=== PATIENT | female | born 1950 | race Caucasian/White ===

== ENCOUNTER 2018-12-06 12:08 | Emergency (ER) | payer MEDICARE, OTHER, SELFPAY ==
[2018-12-06 12:09] VITALS: BP 154/91; PULSE 81; RESP 16; TEMP 36.7; O2SAT 98; BMI 24.4
--- NOTE | 2018-12-06 12:48 | CT_ITS ---
STUDY: CT BRAIN WITHOUT CONTRAST REASON FOR EXAM: Female, 68 years old. Head injury due to a fall. The patient is on oral anticoagulants. RADIATION DOSAGE (If Supplied By Facility): CTDIvol = ( 44.99 ) mGy, DLP = ( 796.11 ) mGycm TECHNIQUE: Transaxial CT imaging of the brain was performed without administration of intravenous contrast material. Individualized dose optimization techniques were used for this CT. COMPARISON: No relevant priors. FINDINGS: There is evidence of a small scalp hematoma overlying the right frontal bone. Normal calvarium. There is mild cerebral atrophy with widening of the extra-axial spaces and ventricular dilatation. There are areas of decreased attenuation within the white matter tracts of the supratentorial brain, consistent with microvascular disease changes. Normal basal ganglia and thalami. Normal brainstem. Normal cerebellum. There is no intracranial hemorrhage. There are no findings of an acute ischemic infarction. Atherosclerotic calcification of the cavernous portions of the internal carotid arteries bilaterally. Small air-fluid level along the posterior aspect of the right ethmoid sinus. CT/Brain/Head without Contrast IMPRESSION: Chronic involutional changes of the brain. Small scalp hematoma overlying the right frontal bone. Electronically Signed: Carloz Coon, at 14:28 EDT , Service support ,
--- NOTE | 2018-12-06 14:11 | RAD_ITS ---
STUDY: X-RAY - LEFT HAND, ATTENTION LEFT THUMB. REASON FOR EXAM: Female, 68 years old. Pain following injury. TECHNIQUE: view(s) of the finger were obtained. COMPARISON: None. FINDINGS: Normal metacarpal head. Normal metacarpophalangeal joint. Normal proximal phalanx. Normal distal phalanx. Normal distal interphalangeal joint. Osteoarthritis with subluxation of the first carpometacarpal joint. Soft tissue swelling. RAD/Finger(s) Min 2 Views IMPRESSION: Soft tissue swelling. Osteoarthritis and subluxation at the first carpometacarpal joint. Electronically Signed: Carloz Coon, at 14:31 EDT , Service support ,
--- NOTE | 2018-12-06 15:02 | ED.VISSUMM ---
- ER Visit Summary Date of Service: 12/06/18 Chief Complaint: Head injury History of Present Illness: The patient is a 68 F who presents with a head injury that occurred after a fall. Patient tripped and fell today. Patient fell forward and hit her head. Patient also complains of pain in her left thumb. Patient denies any loss of consciousness. Patient was able to ambulate after the fall. Patient denies any paresthesias or weakness. Patient describes her pain is aching. Patient states she is on Eliquis because she has a pacemaker. Physical Examination: Vital signs are stable. Patient is afebrile. Patient is in no acute distress. Cranial nerves II through XII are intact. There are no focal motor or sensory deficits noted. There is tenderness, edema, and ecchymosis over the right frontal area. There is a superficial skin tear over this area. There is no active bleeding. Pupils are equal, round, and reactive to light bilaterally. Extraocular muscles are intact. There is no bony crepitance or step-off of the right orbital area. Neck is supple. Trachea is midline. There is no JVD noted. There is no cervical spine tenderness. Heart was regular rate and rhythm. Lungs are clear and equal bilaterally. Abdomen is soft and nontender. Musculoskeletal exam reveals tenderness, edema, and ecchymosis over the left thumb and IP joint. There is no deformity. Range of motion was limited in flexion of the IP joint secondary to pain. Test Results: CT scan of the brain was obtained. There is no acute intracranial abnormality. X-ray of the left thumb was obtained. There is no acute fracture. These were interpreted by the radiologist myself. Emergency Department Course and Treatment: Patient was instructed to use ice to the area. Bacitracin dressing was applied to the right frontal area. Patient was instructed to take Tylenol as needed for pain. Patient was instructed to follow-up with her primary care physician in 5 to 7 days. Patient understood and was agreeable with the plan. All questions were answered. Disposition: Discharge home Impression: 1. Closed head injury 2. Left thumb contusion This note was generated with [employer] software. It may contain incorrect words, spelling, and punctuation that were not noted in review of the chart prior to signing ED Disposition - Plan for ED Patient: Disposition: Home or Assisted Living Diagnosis: Closed head injury, Contusion of left thumb Instructions: SCALP CONTUSION, No Wake Up, CONTUSION, Hand Referrals: BELLA CLAIRE [Other] - 5-7 Days
[2018-12-06] MEDS: BACITRACIN 15 GM Tube 1 APPLIC TOPICAL (15:32)
== END 2018-12-06 15:52 | disposition home or self-care (01) ==
PROVIDERS: Emergency Provider Emergency Medicine
DX: S09.90XA Unspecified injury of head, initial encounter (principal); S60.012A Contusion of left thumb without damage to nail, initial encounter; Z95.0 Presence of cardiac pacemaker; Z79.02 Long term (current) use of antithrombotics/antiplatelets; Z87.891 Personal history of nicotine dependence; W01.0XXA Fall on same level from slipping, tripping and stumbling without subsequent striking against object, initial encounter; Y93.01 Activity, walking, marching and hiking; Y92.89 Other specified places as the place of occurrence of the external cause; Y99.8 Other external cause status
CPT/HCPCS: 70450; 73140; 99282

== ENCOUNTER → 2019-09-11 16:23 | Outpatient (CLI) | payer MEDICARE, OTHER, SELFPAY ==
--- NOTE | 2019-09-11 16:29 | CT_ITS ---
STUDY: CT CERVICAL SPINE WITHOUT CONTRAST REASON FOR EXAM: Female, 68 years old. SPONDYLOSIS W/O MYELOPATHY OR RADICULOPATHY RADIATION DOSAGE (If Supplied By Facility): CTDIvol = ( ) mGy, DLP = ( ) mGycm TECHNIQUE: High resolution transaxial imaging was performed without contrast material. Sagittal and coronal images were reconstructed. Individualized dose optimization techniques were used for this CT. COMPARISON: None FINDINGS: Normal craniovertebral junction. There are degenerative changes of the anterior atlantoaxial articulation. Normal odontoid process. Normal cervical lordosis. There is evidence of a marked degree of degenerative changes at the C1-C2 level on the right side with a bony hypertrophy. C2-3: Mild degree of disc space narrowing. Facet joint osteoarthritis with hypertrophy. C3-4: Moderate degree of disc space narrowing. Uncovertebral arthrosis with bilateral hypertrophy of the facet joints and osteoarthritis. C4-5: Moderate degree of disc space narrowing with subchondral sclerosis. Grade 1 anterolisthesis of C4 on C5 without spondylolysis. This most likely secondary to the facet joint osteoarthritis and hypertrophy. Uncovertebral arthrosis. Mild degree of bilateral neural foraminal stenosis. C5-6: Facet joint osteoarthritis and hypertrophy. Mild degree of bilateral neural foraminal stenosis. C6-7: Marked degree of disc space narrowing with subchondral sclerosis. Uncovertebral arthrosis. Facet joint osteoarthritis. Calcified plaques of the carotid bifurcations. CT/Spine Cervical without Contras IMPRESSION: Multilevel degenerative changes, as described above. Grade 1 anterior listhesis of C4 on C5. Electronically Signed: Carloz Coon, at 9:37 EDT , Service support ,
== END ==
DX: M47.813 Spondylosis without myelopathy or radiculopathy, cervicothoracic region (principal)
CPT/HCPCS: 72125

== ENCOUNTER 2020-10-03 20:42 | Observation (INO) | payer MEDICARE, OTHER, SELFPAY ==
[2020-10-03] VITALS (7 sets, daily range): BP systolic 110–140; BP diastolic 62–90; PULSE 58–72; RESP 13–23; TEMP 36.6; O2SAT 95–98; BMI 27.0
--- NOTE | 2020-10-03 20:45 | EKG12_ITS ---
Test Reason : NEURO Blood Pressure : / mmHG Vent. Rate : 079 BPM Atrial Rate : 079 BPM P-R Int : 128 ms QRS Dur : 144 ms QT Int : 440 ms P-R-T Axes : 028 -54 103 degrees QTc Int : 504 ms Atrial-sensed ventricular-paced rhythm Biventricular pacemaker detected Abnormal ECG Confirmed by CARLEE PALOMINO, NOEMI ([id number]), food expeditor NICOLE NUNES ([id number]) on 10/06/2020 1:23:56 PM Referred By: DESIRAE Confirmed By:NOEMI BEJARANO MD
--- NOTE | 2020-10-03 20:45 | CT_ITS ---
We are attempting to reach an attending provider to discuss findings. An addendum with communication details will be sent when the communication is complete. EXAMINATION : Head CT w/out contrast HISTORY : Neuro deficit, acute, stroke suspected COMPARISON : None. TECHNIQUE : Multiple contiguous axial images were obtained from the skull base to the vertex without intravenous contrast. A radiation dose optimization technique was used for this scan. FINDINGS : There is no evidence for acute intracranial hemorrhage, mass effect, or midline shift. There is no extra-axial fluid collection. Normal ventricles and subarachnoid spaces. There are periventricular white matter changes consistent with chronic microvascular ischemic disease. There is normal segura-white differentiation, without CT evidence of acute ischemia or infarct. The skull base and calvarium are unremarkable. The orbits are unremarkable. The paranasal sinuses are clear. The mastoid air cells are well-aerated. The soft tissues are unremarkable. CT/STROKE Brain/Head without Cont IMPRESSION: No acute intracranial abnormality. Chronic ischemic changes of the brain. Electronically Signed: Umair Miller MD at 21:09 EDT Tel , Service support ,
--- NOTE | 2020-10-03 20:47 | CT_ITS ---
STUDY: CTA HEAD AND NECK WITH CONTRAST REASON FOR EXAM: Female, 70 years old. Neuro deficit, acute, stroke suspected RADIATION DOSAGE (If Supplied By Facility): CTDIvol = ( 15.47 ) mGy, DLP = ( 511.81 ) mGycm TECHNIQUE: CT angiography was performed with a multi-detector CT scanner. Data acquisition was obtained from the skull base through the vertex following intravenous administration of IV 100mL Isovue-370. MIP images were reconstructed from the axial data set. Post-processing of the angiographic images was performed, with multiplanar reformation and 3D reconstruction. Individualized dose optimization techniques were used for this CT. COMPARISON: CT brain 10/03/2020 FINDINGS: Normal bilateral petrous carotid arteries. Normal right cavernous carotid artery with a normal supraclinoid bifurcation. Normal left cavernous carotid artery with a normal supraclinoid bifurcation. Normal right A1 segments of the anterior cerebral artery. Normal left A1 segments of the anterior cerebral artery. Normal intact anterior communicating artery (ACOM). Normal bilateral A2 segments of the anterior cerebral arteries. Normal right M1 and M2 segments of the middle cerebral arteries, with a normal M1 bifurcation. Normal left M1 and M2 segments of the middle cerebral arteries, with a normal M1 bifurcation. There is non-visualization of the right posterior communicating artery (PCOM). There is non-visualization of the left posterior communicating artery (PCOM). Normal bilateral vertebral arteries. Normal basilar artery with a normal basilar bifurcation. The visualized bilateral superior cerebellar (SCA) arteries are normal except for focal plaque at the origin of the left superior cerebellar artery. Normal bilateral P1, P2 and visualized P3 segments of the posterior cerebral arteries. There is no demonstrated aneurysm of the [place] of [place]. There is no demonstrated abnormality of the visualized brain. AORTIC ARCH: Normal visualized aortic arch. Normal origins of the brachiocephalic, left common carotid, and left subclavian arteries. RIGHT CAROTID ARTERIES: There is atherosclerotic tortuous elongation of the right common carotid artery. Normal right common carotid bulb. Normal origin of the right internal carotid (ICA) artery without a hemodynamically significant stenosis. Normal visualized cervical portion of the right internal carotid artery. Normal origin of the right external carotid artery (ECA). LEFT CAROTID ARTERIES: Normal left common carotid artery (CCA). Normal left common carotid bulb. Normal origin of the left internal carotid (ICA) artery without a hemodynamically significant stenosis. Normal visualized cervical portion of the left internal carotid artery. Normal origin of the left external carotid artery (ECA). VERTEBRAL ARTERIES: Normal bilateral vertebral arteries. Calcified plaque at the origin of the right vertebral artery. Proximal vertebral arteries are tortuous. Left vertebral artery is normal. IMPRESSION: Focal plaque at the origin of the left superior cerebellar artery. Calcified plaque at the origin of the right vertebral artery. Otherwise no significant stenosis or major branch occlusion. N.B. : The above Results were Read Back by Ney Bernard MD to Dr. Davon Russo MD, and understanding confirmed on 10/03/2020 21:36:19 (ET). Electronically Signed: Ney Bernard MD at 21:37 EDT , Service support , CT/STROKE CTA Head AND Neck W/Con
--- NOTE | 2020-10-03 20:48 | EDS_ITS ---
HPI History of Present Illness Chief Complaint: Neuro S/Sx Detail of Chief Complaint: Trouble speaking Informant: patient and EMS Onset/Context/Timing Onset: Today Context: Sudden Onset Timing: Continuous Quality and Location: Positive for Expressive Aphasia Current Severity: Gone Maximum Severity: Mild Associated Symptoms Associated Symptoms: Negative for Headache and Nausea Narrative Narrative: 70-year-old female 8:00 tonight had sudden onset of expressive aphasia. Lasted about 30 minutes and 10 minutes prior to arrival per the squad the symptoms totally resolved. Patient has no history of TIAs or strokes. She is on Eliquis for known history of A. fib. She has a history of a pacemaker. On arrival patient is symptom-free. Prior similar symptoms: No Recent Illness/Hospitalization: No PFSH PFSH Home Medications alendronate 70 mg PO DAILY 10/03/20 [History Last Taken Unknown] alprazolam 0.5 mg PO PRN PRN 10/03/20 [History Last Taken Unknown] apixaban [Eliquis] 5 mg PO BID 10/03/20 [History Last Taken Unknown] buprenorphine QWEEK 10/03/20 [History Last Taken Unknown] buspirone 10 mg PO TID 10/03/20 [History Last Taken Unknown] furosemide 40 mg PO DAILY 10/03/20 [History Last Taken Unknown] gabapentin 1,200 mg PO BID 10/03/20 [History Last Taken Unknown] hydromorphone 4 mg PO TID 10/03/20 [History Last Taken Unknown] levothyroxine 100 mcg PO DAILY 10/03/20 [History Last Taken Unknown] metoprolol succinate 100 mg PO DAILY 10/03/20 [History Last Taken Unknown] orphenadrine citrate 100 mg PO DAILY 10/03/20 [History Last Taken Unknown] pantoprazole 40 mg PO DAILY 10/03/20 [History Last Taken Unknown] potassium chloride [Klor-Con M20] 20 meq PO DAILY 10/03/20 [History Last Taken Unknown] promethazine 25 mg PO PRN PRN 10/03/20 [History Last Taken Unknown] venlafaxine 75 mg PO DAILY 10/03/20 [History Last Taken Unknown] Allergy/AdvReac Type Severity Reaction Status Date / Time amoxicillin [From Augmentin] Allergy Diarrhea Verified 12/06/18 12:09 clavulanic acid Allergy Diarrhea Verified 12/06/18 12:09 [From Augmentin] Sulfa (Sulfonamide Allergy Swelling Verified 12/06/18 12:09 Antibiotics) Social History Smoking Status: Never smoker ROS ROS ED ROS Narrative No recent illness. Review of Systems ROS Unobtainable: Denies due to encephalopathy Constitutional Constitutional ED: Denies chills or fever(s) Eyes Eyes: Denies change in vision ENT ENT ED: Denies ear pain Cardiovascular Cardiovascular: Denies chest pain Respiratory/Chest Respiratory/Chest: Denies dyspnea Gastrointestinal Gastrointestinal: Denies abdominal pain, diarrhea, nausea or vomiting Genitourinary Genitourinary ED: Denies dysuria Musculoskeletal Musculoskeletal: Denies myalgias Integumentary Denies rash Neurologic Neurologic: Denies headache(s) Psychiatric Psychiatric: Denies depression Endocrine Endocrinology: Denies polyuria Hematologic/Lymphatic Hematologic/Lymphatic: Denies easy bruising Allergic/Immunologic Allergic/Immunologic ED: Denies urticaria EXAM Physical Exam Narrative Exam Narrative: 70-year-old female no acute distress. Vital signs stable afebrile. Normal exam. Normal neurologic exam. Currently NIH score is zero. She was taken directly to CAT scan. Const Vital Signs: 10/03/20 21:11 10/03/20 21:12 10/03/20 21:13 Temperature 97.8 F Temperature Source Temporal Pulse Rate 61 61 Respiratory Rate 18 16 Blood Pressure 139/90 H 139/90 H Blood Pressure Mean 106 106 Pulse Ox 95 95 Oxygen Delivery Method Room Air Room Air Room Air 10/03/20 21:15 10/03/20 21:45 10/03/20 22:15 Temperature Temperature Source Pulse Rate 58 L 62 72 Respiratory Rate 16 23 H 18 Blood Pressure 139/90 H 140/62 H 124/70 H Blood Pressure Mean 106 88 88 Pulse Ox 96 98 98 Oxygen Delivery Method Room Air Room Air Room Air Positive well nourished and well developed General Appearance ED: well developed HEENT Reports moist mucous membranes atraumatic; Negative for trauma Eyes PERRL and EOMs intact bilaterally Neck no lymphadenopathy, supple and no JVD General: Negative for tenderness Chest Wall inspection of chest normal and palpation of chest normal Resp normal respiratory effort and clear to auscultation bilaterally Cardio no murmurs Rate: regular rate Rhythm: regular rhythm GI normal to inspection, nondistended, normoactive bowel sounds, soft to palpation, non-tender and non-distended Back/Spine no CVA tenderness Extremity normal to inspection General Extremety ED: Negative for deformity, edema or tenderness General Extremity: Negative for deformity or edema Neuro oriented x3 and CN's II-XII intact bilaterally Neuro Narrative: NIH is zero. Sensorium / Orientation: alert, oriented to person, oriented to place and oriented to time; Negative for orientation impaired or confused Speech: speech normal Motor Exam: strength 5/5 throughout Psych mental status grossly normal Skin Rashes: no rashes STROKE Vital Signs/Narrative: Vital Signs Temp Pulse Resp BP Pulse Ox 10/03/20 22:15 72 18 124/70 H 98 10/03/20 21:45 62 23 H 140/62 H 98 10/03/20 21:15 58 L 16 139/90 H 96 10/03/20 21:13 97.8 F 61 16 139/90 H 95 10/03/20 21:11 61 18 139/90 H 95 MDM MDM MDM Narrative Medical decision making narrative: Patient had initial symptoms of expressive aphasia which is now resolved. Her history and exam are consistent with a TIA. She will undergo stroke protocol and be admitted. She is not a TPA candidate one because her symptoms have resolved and two she is on Eliquis. Repeat exam patient doing well at 11 PM. Neuro exam normal. Impression: Acute expressive aphasia resolved secondary to TIA History of pacemaker I spoken to the hospitalist will be admitted to the PCU. Lab Data Attestation: I reviewed the patient's lab results. Lab results narrative: CBC shows a white count of five. Hemoglobin 11. PT/INR normal. Electrolytes unremarkable gap seven. Creatinine normal. Glucose 85. CT of her brain and CTA head and neck were unremarkable per the radiologist. Labs: Laboratory Results - last 24 hr 10/03/20 10/03/20 10/03/20 20:30 20:30 20:30 WBC 5.0 RBC 3.32 L Hgb 11.0 L Hct 34.8 L MCV 104.8 H MCH 33.1 H MCHC 31.6 L RDW Std Deviation 48.2 H RDW Coeff of Dara 12.5 Plt Count 196 MPV 9.9 Immature Gran % (Auto) 0.400 Neut % (Auto) 57.0 Lymph % (Auto) 24.4 Traverse % (Auto) 12.4 H Eos % (Auto) 5.0 Baso % (Auto) 0.8 Absolute Neuts (auto) 2.8 Absolute Lymphs (auto) 1.22 Nucleated RBC % 0 PT 15.2 H INR 1.3 APTT 34.3 Sodium 139 Potassium 4.5 Chloride 109 H Carbon Dioxide 23.0 Anion Gap 7 BUN 17 Creatinine 0.91 Estim Creat Clear Calc 51.78 Est GFR (MDRD) Af Amer 78 Est GFR (MDRD) Non-Af 65 BUN/Creatinine Ratio 18.7 Glucose 85 Calcium 8.3 L Troponin I High Sens 6.7 Radiography Diagnostic Testing: Radiology Impression Brain CT 10/03/20 20:45 IMPRESSION: No acute intracranial abnormality. Chronic ischemic changes of the brain. Electronically Signed: Umair Miller MD at 21:09 EDT Tel , Service support , ADDENDUM: 10/03/20 2117 IMPRESSION: No acute intracranial abnormality. Chronic ischemic changes of the brain. N.B. : The above Results were Read Back by Umair Miller MD to Dr. Davon Russo MD, and understanding confirmed on 10/03/2020 21:10:40 (ET). Electronically Signed: Umair Miller MD at 21:09 EDT Tel , Service support , Head/Neck CTA 10/03/20 20:47 ADDENDUM: 10/03/20 2144 Rhythm Strip Rhythm Strip: Paced Rate: 69 Ectopy: None EKG Initial EKG: Attestation: I personally reviewed and interpreted this EKG as follows: Interpretation: Paced Comments: Paced rhythm at 69. Discharge Plan Triage Chief Complaint: Neuro S/Sx ED Provider: Roshan Russo Dx/Rx/DC Orders Instructions: ED TIA: Transient Ischemic Attack Prescriptions: No Action furosemide 40 mg tablet 40 mg PO DAILY RF: 0 venlafaxine 75 mg capsule,extended release 24hr 75 mg PO DAILY RF: 0 gabapentin 600 mg tablet 1,200 mg PO BID RF: 0 alendronate 70 mg tablet 70 mg PO DAILY RF: 0 metoprolol succinate 100 mg tablet extended release 24 hr 100 mg PO DAILY RF: 0 levothyroxine 100 mcg tablet 100 mcg PO DAILY RF: 0 alprazolam 0.5 mg tablet 0.5 mg PO PRN PRN (Reason: Anxiety) RF: 0 potassium chloride [Klor-Con M20] 20 mEq tablet,ER particles/crystals 20 meq PO DAILY RF: 0 pantoprazole 40 mg tablet,delayed release (DR/EC) 40 mg PO DAILY RF: 0 buspirone 10 mg tablet 10 mg PO TID RF: 0 promethazine 25 mg tablet 25 mg PO PRN PRN (Reason: Nausea) RF: 0 orphenadrine citrate 100 mg tablet extended release 100 mg PO DAILY RF: 0 hydromorphone 4 mg tablet 4 mg PO TID RF: 0 buprenorphine 20 mcg/hour patch weekly QWEEK RF: 0 Eliquis 5 mg tablet 5 mg PO BID RF: 0 Referrals: BELLA CLAIRE [Other] Disposition Disposition: Acute Care Hospital [facility]
[2020-10-03 21:04] LABS: Absolute Lymphocyte Count 1.22 X10^3/uL (0.83-4.51); Absolute Neutrophil Count 2.8 X10^3/uL (2.0-7.7); Basophil# 0.04 X10^3/uL; Basophil% 0.8 % (0-1); Eosinophil# 0.25 X10^3/uL; Hematocrit 34.8 % (37-47); Lymphocyte # 1.22 X10^3/ul (0.83-4.51); Lymphocyte % 24.4 % (19-41); Mean Corp Hgb Conc 31.6 g/dL (32-36); Mean Corpuscular Hgb 33.1 pg (27.0-32.0); Mean Corpuscular Volume 104.8 fL (81-99); Mean Platelet Vol. 9.9 fl (6.2-12.0); Monocyte# 0.62 X10^3/uL; Monocyte% 12.4 % (0-10); NRBC Flagged by Analyzer 0 % (0-5); Neutrophil # 2.84 X10^3/uL (2.7-7.7); Platelet Count 196 K/mm3 (150-450); RBC Distribution Width CV 12.5 % (11.6-14.6); RBC Distribution Width SD 48.2 fl (35.1-43.9); Red Blood Count 3.32 M/mm3 (4.2-5.4)
[2020-10-03 21:06] LABS: International Normalized Ratio 1.3; Prothrombin Time (Protime)PT. 15.2 SECONDS (11.7-14.9)
[2020-10-03 21:07] LABS: Partial Thromboplast Time 34.3 Seconds (24.1-36.2)
[2020-10-03 21:20] LABS: Anion Gap 7 (5-15); BUN 17 mg/dL (7-18); BUN/Creat Ratio 18.7 RATIO (10-20); Calcium,Total 8.3 mg/dL (8.5-10.1); Chloride 109 mmol/L (98-107); Creatinine, Serum 0.91 mg/dL (0.55-1.02); EST Glomerular Filtration Rate 65 mL/min (>60); Est Glom Filt Rate - Afr Amer 78 mL/min (>60); Estimated Creatinine Clearance 51.78 ml/min; Glucose 85 mg/dL (74-106); Potassium 4.5 mmol/L (3.5-5.1); Sodium Level 139 mmol/L (136-145); Troponin-I HS 6.7 pg/mL (3.0-53.7)
--- NOTE | 2020-10-03 21:25 | RAD_ITS ---
STUDY: X-RAY CHEST REASON FOR EXAM: Female, 70 years old. Neuro deficit, acute, stroke suspected TECHNIQUE: Single frontal view of the chest. COMPARISON: None. FINDINGS: 3 lead pacer on the left. Possible mild left upper lobe infiltrate. There is no demonstrated pleural abnormality. Normal size heart. Normal mediastinum and johnny. Normal visualized pulmonary arteries. Normal visualized aortic arch and descending thoracic aorta. Moderate scoliosis. Normal visualized ribs, clavicles, and shoulders. Gas-filled loops of small and large bowel. RAD/Chest 1 View IMPRESSION: Possible left upper lobe infiltrate. Ileus. Electronically Signed: Ney Bernard MD at 23:23 EDT , Service support ,
--- NOTE | 2020-10-03 23:13 | ED.RN ---
NIH discontinued per dr funez order. TIA primary diagnosis. Consecutive NIH scores of zero since arrival to ed. philip borges rn [id number]
[2020-10-03 23:20] LABS: Magnesium 2.4 mg/dL (1.6-2.6)
--- NOTE | 2020-10-03 23:25 | PCM.HOSP.N ---
Hospitalist Note History and Physical: Chief Complaint: Acute onset aphasia. The patient is a 70 y/o F w/ PMHx: GERD, Anxiety and Depression, Chronic pain syndrome, Hypothyroidism, HTN, PAF, Fibromyalgia who presents to the [facility] ED on 10/03/2020 with history of onset at ~ 8 pm significant aphasia found by EMS phone call per family as patient and her family had been sitting down to dinner and suddenly she was nonresponsive with patient ability to follow commands but cannot speak or answer questions appropriately with blood sugar assessment per EMS 94 prompting ED evaluation. Stroke alert called in route. Approximately 10 minutes out from the hospital patient was able to then start answering questions appropriately and speech returned. Per EMS at that time patient was and able to answer all appropriate questions. NIHSS 0 in the ED. Allergies: Amoxicillin with diarrhea, clavulanic acid with diarrhea, sulfa with swelling. Home medications: Venlafaxine 75 mg p.o. daily Promethazine 25 mg p.o. as needed Potassium chloride 20 mill equivalent p.o. daily Pantoprazole 40 mg p.o. daily Orphenadrine citrate 100 mg p.o. daily Metoprolol succinate 100 mg p.o. daily Levothyroxine 100 mcg p.o. daily Hydromorphone 4 mg p.o. 3 times daily Gabapentin 1200 mg p.o. twice daily Lasix 40 mg p.o. daily Buspirone 10 mg p.o. 3 times daily Eliquis 5 mg p.o. twice daily Alprazolam 0.5 mg p.o. as needed Alendronate 70 mg p.o. daily Buprenorphine weekly Social Hx: Patient lives with her spouse, quit cigarette tobacco usage approximately 20 years prior to current presentation, started when she was 14 years old with 1/2 pack/day cigarette tobacco usage until she quit, no alcohol or substance abuse. PSurgHx: Pacemaker (patient states it was placed because of a left bundle branch block and that she was following with Dr. Marino in [place], placed 6 years prior) Tonsillectomy and adenoidectomy Cataract surgery bilaterally Hysterectomy Bladder suspension surgery Hernia repair x2 Bilateral total knee replacement. Family Hx: Patient notes a maternal family history of heart disease and diabetes in a paternal family history of heart disease. Admission Review of Systems: CONSTITUTIONAL: No weight loss, fever, chills, + weakness or fatigue. HEENT: Eyes: No visual loss, blurred vision, double vision or yellow sclerae. Ears, Nose, Throat: No hearing loss, sneezing, congestion, runny nose or sore throat. SKIN: No rash or itching, lesions, wounds. CARDIOVASCULAR: No chest pain, chest pressure or chest discomfort, palpitations, edema, orthopnea, syncopal events. RESPIRATORY: No shortness of breath, cough or sputum, wheezing, hemoptysis. GASTROINTESTINAL: No anorexia, nausea, vomiting or diarrhea, abdominal pain, melena, BRBPR. GENITOURINARY: No dysuria, frequency, urgency or retention. NEUROLOGICAL: + Aphasia, No headache, dizziness, syncope, paralysis, ataxia, numbness or tingling in the extremities, focal weakness, change in bowel or bladder control, seizure. MUSCULOSKELETAL: + muscle, back pain, joint pain or stiffness. HEMATOLOGIC: + anemia, bleeding or bruising. LYMPHATICS: No enlarged nodes. No history of splenectomy. PSYCHIATRIC: + history of depression or anxiety. ENDOCRINOLOGIC: No reports of sweating, cold or heat intolerance. No polyuria or polydipsia. ALLERGIES: No history of asthma, hives, eczema or rhinitis. Labs: CBC with WBC 5, hemoglobin 11, platelet 196 without marked shift Coags with PT 15.2 otherwise not marked appearing BMP with chloride 109 otherwise not marked appearing Troponin 6.7 high-sensitivity Imaging: CT of the brain with chronic ischemic changes with no acute intracranial abnormality CTA of the head and neck with focal plaque at the origin of the left superior cerebellar artery, calcified plaque at the origin of the right vertebral artery otherwise no significant stenosis or major branch occlusion Chest x-ray with no acute cardiopulmonary findings EKG: Paced rate 79. VS: T 97.8, heart rate 61, BP 139/90, respiratory rate 16, 95% on room air. Physical Examination: General: awake, alert, oriented x 3 and cooperative, seated upright in the ED bed, no acute distress, resolved aphasia noted prior, eating a sandwich. Skin: normal color, turgor, no icterus, cyanosis. HEENT: AT/NC, EOMI, PERRLA, MMM, no carotid bruits or JVD noted. Lungs: Mildly diminished, greater bases, appropriate effort, no rales, ronchi or wheezing. Heart: Regular rate and rhythm; no gallop, rub audible. Abdomen: soft, NTTP, ND, normal BS, no HSM. Extremities: no cyanosis, clubbing, or edema. Neurological: patient awake, alert, oriented as noted; cognitive function returned to baseline intact; pupils equally reactive to light and accomodation; cranial nerves II-XII grossly normal, moving all 4 extremities, no focal deficits, strength preserved, resolved prior noted aphasia, normal FTN/HTS. Psychiatric: affect appears normal, no acute evidence of depressive or anxiety feelings. Assessment and Plan: The patient is a 70 y/o F w/ PMHx: GERD, Anxiety and Depression, Chronic pain syndrome, Hypothyroidism, HTN, PAF, Fibromyalgia who presents to the [facility] ED on 10/03/2020 with history of significant aphasia found by EMS phone call per family as patient and her family had been sitting down to dinner and suddenly she was nonresponsive with patient ability to follow commands but cannot speak or answer questions appropriately which eventually resolved after 10 minutes. 1. Acutely unresponsive, expressive aphasia concerning for TIA/CVA, questionable possible seizure activity: Will admit to PCU, will plan repeat CT head in 24 hours given pacemaker status unable to obtain MRI, ECHO, PT/OT/Speech/Nutrition evaluation per protocol. Will consult Neurology for evaluation once imaging obtained. Pending repeat imaging and further work-up if not marked may need to consider if recurrent events EEG. Will allow permissive HTN, maintain on asa and eliquis, add moderate dose statin w/ AM FLP, fall precautions. Mag, TSH, HgA1c, FLP pending. Will need to de-escalate scheduled narcotic as may also be etiology or contributing to presentation. Additional Co-morbidities: s/p Pacemaker status: Unclear specific etiology, placed in [place] [address] Marino, they are noting secondary to LBBB history. Hypothyroidism: Continue home synthroid regimen, TSH pending. PAF: We will continue patient home Eliquis regimen, temporally holding metoprolol for permissive hypertension as noted, add back once appropriate. Anxiety and depression: We will continue patient home venlafaxine as well as alprazolam as needed regimen. Chronic pain syndrome, fibromyalgia, chronic back pain: Will continue buprenorphine as well as scheduled orphenadrine, gabapentin and hydromorphone to avoid any withdrawal but hold for sedated nature. Fall precautions. Hypertension: We will maintain permissive hypertension given acute presentation but quick resumption if repeat CT head unremarkable. As needed agents pending level. Hyperlipidemia: Not on regimen, adding moderate dose given presentation, FLP in AM. GERD: Continue patient on PPI. DVT prophylaxis: SCDs, continue Eliquis. Visit Charges OBSV E&M: 22631 Initial observation care L3
--- NOTE | 2020-10-03 23:31 | ED.RN ---
medical hx verbal obtained. Placed in nursing note. Medical hx to follow: A-fib, HTN, Hyperlipidemia, TIA, Pacemaker, Hysterectomy, Former smoker, Hypothyroidism, Hernia repair, Bilateral knee repair, left ankle repair, carpal tunnel release, Anxiety, Depression, Degenerative disk disease, fibromyalgia, osteopetrosis. Gil Gillis, rn [id number]
[2020-10-04] VITALS (12 sets, daily range): BP systolic 107–141; BP diastolic 48–77; PULSE 60–76; RESP 16–18; TEMP 36.6–37; O2SAT 94–99; BMI 24.8
--- NOTE | 2020-10-04 00:29 | ECHOD_ITS ---
Reason For Study: CVA Procedure This was a 2D Doppler, Color Flow transthoracic echocardiogram. Contrast injection was performed. Exam performed portable in patient room. Left Ventricle Normal LV size. Left ventricular systolic function is normal. The estimated ejection fraction is 60 %. No regional wall motion abnormalities noted. Right Ventricle Normal RV size. ICD or pacer leads identified within the right ventricle. Normal systolic function. Atria The left atrium is moderately enlarged. The right atrium is mildly enlarged. ICD or pacer leads identified within the right atrium. No doppler evidence for ASD. Bubble contrast study negative for right to left interatrial shunt. Mitral Valve There is moderate mitral annular calcification. Extension of the mitral annular calcification on the base of the posterior mitral valve leaflet. Mild (1+) mitral valve insufficiency. Tricuspid Valve Normal tricuspid valve. Moderate (2+) tricuspid valve insufficiency. Right ventricular systolic pressure estimated to be 45 mmHg. Aortic Valve Trisinus/trileaflet aortic valve. Mild focal aortic valve calcification. Mild (1+) aortic valve insufficiency. Pulmonic Valve The pulmonic valve is not well visualized. Trivial pulmonic valve insufficiency. Great Vessels Mildly dilated aortic root. Calcified aortic root. Pericardium/Pleural No pericardial effusion. Medication Performed a rapid injection of agitated mix of 9 cc saline and 1cc air to assess for atrial septal defect. MMode/2D Measurements & Calculations LVIDd: 4.7 cm IVSd: 1.2 cm Ao root diam: 4.0 cm LVIDs: 3.1 cm LVPWd: 1.1 cm LA dimension: 5.1 cm RVDd: 4.7 cm FS: 34.5 % LAV(MOD-bp): 88.2 ml LA A4 area: 25.2 cm2 RA A4 area: 21.4 cm2 LAV(MOD-bp) Indexed: 60.8 ml/m2 LAV(MOD-sp2): 87.6 ml LAV(MOD-sp4): 85.0 ml Time Measurements MV dec time: 0.20 sec Doppler Measurements & Calculations MV E max delfin: 150.4 cm/sec Lat Peak E' Delfin: 11.7 cm/sec Med Peak E' Delfin: 5.7 cm/sec MV A max delfin: 66.9 cm/sec E/E' lat: 12.8 E/E' med: 26.2 MV E/A: 2.3 MV V2 max: 133.7 cm/sec MV P1/2t max delfin: 134.2 cm/sec Ao V2 max: 189.8 cm/sec MV max P.2 mmHg MV P1/2t: 83.9 msec Ao max P.4 mmHg MV V2 mean: 64.7 cm/sec MV dec slope: 468.2 cm/sec2 MV mean P.1 mmHg MV V2 VTI: 34.8 cm MVA(P1/2t): 2.6 cm2 AI max delfin: 385.0 cm/sec LV V1 max: 120.8 cm/sec PA V2 max: 92.7 cm/sec AI max P.4 mmHg LV V1 max P.8 mmHg AI dec slope: 208.8 cm/sec2 AI P1/2t: 540.1 msec PI dec slope: 396.9 cm/sec2 TR max delfin: 325.2 cm/sec TR max P.3 mmHg ECHO/Echo Complete Interpretation Summary Left ventricular systolic function is normal. The estimated ejection fraction is 60 %. The left atrium is moderately enlarged. The right atrium is mildly enlarged. There is moderate mitral annular calcification. Extension of the mitral annular calcification on the base of the posterior mitr al valve leaflet. Mild (1+) mitral valve insufficiency. Moderate (2+) tricuspid valve insufficiency. Mild focal aortic valve calcification. Mild (1+) aortic valve insufficiency. Trivial pulmonic valve insufficiency. Mildly dilated aortic root. Calcified aortic root. Right ventricular systolic pressure estimated to be 45 mmHg. Transmitral diastolic flow velocities suggest diastolic dysfunction (pseudonorm al pattern). No doppler evidence for ASD. ICD or pacer leads identified within the right atrium ICD or pacer leads identified within the right ventricle. Ordering Physician: Imelda Chambers Referring Physician: Out of Town Doctor Performed By: James Summers RCS
[2020-10-04] MEDS: 0.9% Normal Saline 1,000 ML 100 ML IV (01:30)
[2020-10-04] MEDS: Gabapentin 600 MG Tablet 1200 MG PO ×2 (01:32→09:04)
[2020-10-04] MEDS: ALPRAZolam 0.5 MG Tablet PO (01:37)
[2020-10-04] MEDS: busPIRone 5 MG Tablet 10 MG PO ×2 (06:22→13:03)
[2020-10-04] MEDS: Levothyroxine 100 MCG Tablet PO (06:22)
[2020-10-04] MEDS: HYDROmorphone 2 MG TABLET 4 MG PO ×2 (06:22→13:03)
[2020-10-04 06:51] LABS: Absolute Lymphocyte Count 1.35 X10^3/uL (0.83-4.51); Basophil# 0.04 X10^3/uL; Eosinophils% 4.9 % (0-5); Hematocrit 32.8 % (37-47); Hemoglobin 10.1 g/dL (12.0-15.0); Lymphocyte # 1.35 X10^3/ul (0.83-4.51); Mean Corp Hgb Conc 30.8 g/dL (32-36); Mean Corpuscular Hgb 32.9 pg (27.0-32.0); Mean Corpuscular Volume 106.8 fL (81-99); Mean Platelet Vol. 9.6 fl (6.2-12.0); Monocyte# 0.53 X10^3/uL; NRBC Flagged by Analyzer 0 % (0-5); Neutrophil # 1.96 X10^3/uL (2.7-7.7); Neutrophil % 47.9 % (47-70); Platelet Count 163 K/mm3 (150-450); RBC Distribution Width CV 12.6 % (11.6-14.6); RBC Distribution Width SD 49.1 fl (35.1-43.9); Red Blood Count 3.07 M/mm3 (4.2-5.4); White Blood Count 4.1 K/mm3 (4.4-11.0)
[2020-10-04 07:28] LABS: AST(SGOT) 27 U/L (15-37); Alanine Aminotransfer ALT/SGPT 21 U/L (13-56); Albumin, Serum 2.8 g/dL (3.2-5.0); Alkaline Phosphatase 46 U/L (45-117); Anion Gap 4 (5-15); BUN 16 mg/dL (7-18); BUN/Creat Ratio 20.9 RATIO (10-20); Calcium,Total 7.6 mg/dL (8.5-10.1); Chloride 113 mmol/L (98-107); Cholesterol 126 mg/dL (200); Creatinine, Serum 0.77 mg/dL (0.55-1.02); EST Glomerular Filtration Rate 79 mL/min (>60); Est Glom Filt Rate - Afr Amer 95 mL/min (>60); Estimated Creatinine Clearance 42.87 ml/min; Globulin 2.8 g/dL (2.2-4.2); Glucose 89 mg/dL (74-106); High Density Lipoprotein 46 mg/dL; Potassium 4.2 mmol/L (3.5-5.1); Protein, Total 5.6 g/dL (6.4-8.2); Sodium Level 142 mmol/L (136-145); T4 Free Direct 0.94 ng/dL (0.76-1.46); Triglycerides 59 mg/dL; Very Low Density Lipoprotein 12 mg/dL (5-40)
[2020-10-04] MEDS: Acetaminophen 325 MG Tablet 650 MG PO ×2 (08:48→15:50)
[2020-10-04] MEDS: APIXABAN 5 MG TABLET PO (09:03)
[2020-10-04] MEDS: Orphenadrine 100 MG Tablet PO (09:03)
[2020-10-04] MEDS: Venlafaxine XR 75 MG Capsule PO (09:03)
[2020-10-04] MEDS: Aspirin 81 MG TAB.CHEW PO (09:03)
[2020-10-04] MEDS: Pantoprazole Sodium 40 MG Tablet PO (09:04)
[2020-10-04] MEDS: Potassium Chloride Oral Tablet 20 MEQ PO (09:04)
--- NOTE | 2020-10-04 14:55 | CHAPLAIN ---
Type of Pastoral Visit _x__ Initial Visit ___ Follow-up Visit ___ On-call Visit ___ General Patient Visit ___ Spiritual Assessment ___ Family Conference ___ Bereavement ___ Rapid Response ___ Code Blue ___ Other (describe below) Pastoral Care Referral From _x__ Patient ___ Family ___ Nurse ___ Physician ___ Hat Cutter ___ Structural Analyst ___ Other (describe below) Sacrament/Intervention _x__ Active listening ___ Anointing ___ Spiritism ___ Bereavement ___ Communion ___ Lorraine exploration ___ ___ Life review _x__ Prayer ___ Reconciliation ___ Sacrament of Sick _x__ Supportive presence ___ Wedding ___ Other (describe below) Pastoral Comments
--- NOTE | 2020-10-04 16:50 | PCM.DC ---
Discharge Instructions Diet Discharge Diet: Low fat / Low cholesterol Activity Discharge Activity: Return to Normal Activity Dressing / Incision Call your doctor if you observe: Fever of 101 or Higher, Shortness of breath, Dizziness, Swelling in the ankles, Chest pain and Increased palpitations (irregular heartbeat) Follow Up Care Test Results: Test results from this visit will be discussed in further detail at your follow-up appointment, if applicable. Discharge Plan Admission Admit Date/Time: 10/03/20 23:07 Attending Provider: Michael Casiano Instructions Patient Instructions: ED TIA: Transient Ischemic Attack Discharge Orders/Prescriptions Prescriptions: New aspirin 81 mg Tablet,Chewable 81 mg PO BREAKFAST Qty: 30 RF: 0 atorvastatin 40 mg Tablet 40 mg PO QHS Qty: 30 RF: 0 Continued furosemide 40 mg tablet 40 mg PO DAILY RF: 0 venlafaxine 75 mg capsule,extended release 24hr 75 mg PO DAILY RF: 0 gabapentin 600 mg tablet 1,200 mg PO BID RF: 0 alendronate 70 mg tablet 70 mg PO DAILY RF: 0 metoprolol succinate 100 mg tablet extended release 24 hr 100 mg PO DAILY RF: 0 levothyroxine 100 mcg tablet 100 mcg PO DAILY RF: 0 alprazolam 0.5 mg tablet 0.5 mg PO BID PRN PRN (Reason: Anxiety) RF: 0 potassium chloride [Klor-Con M20] 20 mEq tablet,ER particles/crystals 20 meq PO DAILY RF: 0 pantoprazole 40 mg tablet,delayed release (DR/EC) 40 mg PO DAILY RF: 0 buspirone 10 mg tablet 10 mg PO TID RF: 0 promethazine 25 mg tablet 25 mg PO PRN PRN (Reason: Nausea) RF: 0 orphenadrine citrate 100 mg tablet extended release 100 mg PO DAILY RF: 0 hydromorphone 4 mg tablet 4 mg PO TID RF: 0 buprenorphine 20 mcg/hour patch weekly QWEEK RF: 0 Eliquis 5 mg tablet 5 mg PO BID RF: 0 ferrous sulfate 325 mg DAILY RF: 0 Referrals / Follow Up: BELLA CLAIRE [Other] BELLA CLAIRE [Other] Disposition Disposition (needs filled in before D/C Order can be placed): Home, Self Care
--- NOTE | 2020-10-04 16:55 | DS.PCM_ITS ---
Providers Date of Admission: 10/03/20 Primary Care Physician: BELLA CLAIRE Reason For Visit: aphasic Medications at Discharge Home Medications Eliquis 5 mg PO BID 10/03/20 alendronate 70 mg PO DAILY 10/03/20 alprazolam 0.5 mg PO BID PRN PRN 10/03/20 buprenorphine QWEEK 10/03/20 buspirone 10 mg PO TID 10/03/20 furosemide 40 mg PO DAILY 10/03/20 gabapentin 1,200 mg PO BID 10/03/20 hydromorphone 4 mg PO TID 10/03/20 levothyroxine 100 mcg PO DAILY 10/03/20 metoprolol succinate 100 mg PO DAILY 10/03/20 orphenadrine citrate 100 mg PO DAILY 10/03/20 pantoprazole 40 mg PO DAILY 10/03/20 potassium chloride [Klor-Con M20] 20 meq PO DAILY 10/03/20 promethazine 25 mg PO PRN PRN 10/03/20 venlafaxine 75 mg PO DAILY 10/03/20 aspirin 81 mg PO BREAKFAST #30 tab 10/04/20 atorvastatin 40 mg PO QHS #30 tab 10/04/20 ferrous sulfate 325 mg DAILY 10/04/20 Hospital Course Operations None Procedures 2-D Echocardiogram Summary of Care Provided Minutes Spent on Discharge: 35 Hospital Course: Per HPI: The patient is a 70 y/o F w/ PMHx: GERD, Anxiety and Depression, Chronic pain syndrome, Hypothyroidism, HTN, PAF, Fibromyalgia who presents to the [facility] ED on 10/03/2020 with history of onset at ~ 8 pm significant aphasia found by EMS phone call per family as patient and her family had been sitting down to dinner and suddenly she was nonresponsive with patient ability to follow commands but cannot speak or answer questions appropriately with blood sugar assessment per EMS 94 prompting ED evaluation. Stroke alert called in route. Approximately 10 minutes out from the hospital patient was able to then start answering questions appropriately and speech returned. Per EMS at that time patient was and able to answer all appropriate questions. NIHSS 0 in the ED. Hospital Course: 1. Expressive aphasia TIA versus [id number]-[id number]-old female presents to the hospital with expressive aphasia which had resolved prior to admission. She had an NIH of 0 on admission and has continued to have an NIH of 0. CT of the brain was unremarkable however she is unable to undergo an MRI secondary to a pacemaker. Repeat CT head was also negative today. I did have an extensive discussion with her about staying 1 more day since she does not live around here and is up here camping for 6 months and then goes home to [place]. She states that she has pain medicine appointment tomorrow that she cannot miss and that physician is next to her PCP. She also thinks that the aphasia and unresponsive episode occurred simply because she took both her pain medication and her anxiety medication at the same time which she does not normally do. She does schofield ve a history of A. fib and is on Eliquis therefore we will add aspirin and have her follow-up with the PCP also neurologist down in [place] when able. We will also add her on Lipitor 40 mg p.o. daily, triglycerides of 59 with a cholesterol of 126 and an LDL of 68, HDL of 46. Echo was unremarkable with a normal EF and likely diastolic dysfunction she did have an elevated RVSP 45 mmHg which she is already on Lasix and does not have any shortness of breath. No PFO was noted. I did discuss with her the plan for discharge today and she expressed understanding of the risk and benefits of going home and would like to go home today. 2. Paroxysmal A. fib, hypertension, GERD, chronic pain, anxiety, depression, hypothyroidism are all chronic medical conditions which complicate her care. Her home medications were continued where appropriate Physical Exam Const alert, oriented x3 and no apparent distress General Appearance: cooperative HEENT normocephalic and moist oral mucous membranes Eyes PERRL, EOMs intact bilaterally and conjunctivae normal Neck supple and no JVD Resp normal respiratory effort, no retractions, no use of accessory muscles and clear to auscultation bilaterally Auscultation: Negative for crackles, rales, rhonchi or wheezes Cardio regular rate, regular rhythm, S1 normal heart sound, S2 normal heart sound and no murmurs GI soft to palpation, non-tender and non-distended; Negative for hepatosplenomegaly Extremity no clubbing, cyanosis or edema Skin no rashes or lesions noted Neuro CN's II-XII intact bilaterally, no focal motor deficits and no sensory deficits noted Speech: speech normal Psych affect normal Appearance: appropriate Weight / BMI Weight Weight: 117 lb 11.629 oz Body Mass Index (BMI) 24.8 ABG / Lab / Microbiology Data Result Diagrams: 10/04/20 06:34 10/04/20 06:34 Laboratory: Laboratory Results - last 24 hr 10/03/20 10/03/20 10/03/20 20:30 20:30 20:30 WBC 5.0 RBC 3.32 L Hgb 11.0 L Hct 34.8 L MCV 104.8 H MCH 33.1 H MCHC 31.6 L RDW Std Deviation 48.2 H RDW Coeff of Dara 12.5 Plt Count 196 MPV 9.9 Immature Gran % (Auto) 0.400 Neut % (Auto) 57.0 Lymph % (Auto) 24.4 [place] % (Auto) 12.4 H Eos % (Auto) 5.0 Baso % (Auto) 0.8 Absolute Neuts (auto) 2.8 Absolute Lymphs (auto) 1.22 Nucleated RBC % 0 PT 15.2 H INR 1.3 APTT 34.3 Sodium 139 Potassium 4.5 Chloride 109 H Carbon Dioxide 23.0 Anion Gap 7 BUN 17 Creatinine 0.91 Estim Creat Clear Calc 51.78 Est GFR (MDRD) Af Amer 78 Est GFR (MDRD) Non-Af 65 BUN/Creatinine Ratio 18.7 Glucose 85 Hemoglobin A1c Calcium 8.3 L Magnesium Total Bilirubin AST ALT Alkaline Phosphatase Troponin I High Sens 6.7 Total Protein Albumin Globulin Albumin/Globulin Ratio Triglycerides Cholesterol LDL Cholesterol VLDL Cholesterol HDL Cholesterol TSH Free T4 10/03/20 10/04/20 10/04/20 23:07 06:34 06:34 WBC 4.1 L RBC 3.07 L Hgb 10.1 L Hct 32.8 L MCV 106.8 H MCH 32.9 H MCHC 30.8 L RDW Std Deviation 49.1 H RDW Coeff of Dara 12.6 Plt Count 163 MPV 9.6 Immature Gran % (Auto) 0.200 Neut % (Auto) 47.9 Lymph % (Auto) 33.0 [place] % (Auto) 13.0 H Eos % (Auto) 4.9 Baso % (Auto) 1.0 Absolute Neuts (auto) 2.0 Absolute Lymphs (auto) 1.35 Nucleated RBC % 0 PT INR APTT Sodium 142 Potassium 4.2 Chloride 113 H Carbon Dioxide 25.0 Anion Gap 4 L BUN 16 Creatinine 0.77 Estim Creat Clear Calc 42.87 Est GFR (MDRD) Af Amer 95 Est GFR (MDRD) Non-Af 79 BUN/Creatinine Ratio 20.9 H Glucose 89 Hemoglobin A1c Calcium 7.6 L Magnesium 2.4 Total Bilirubin 0.20 AST 27 ALT 21 Alkaline Phosphatase 46 Troponin I High Sens Total Protein 5.6 L Albumin 2.8 L Globulin 2.8 Albumin/Globulin Ratio 1.0 Triglycerides 59 Cholesterol 126 LDL Cholesterol 68 VLDL Cholesterol 12 HDL Cholesterol 46 TSH 1.10 Free T4 0.94 10/04/20 06:34 WBC RBC Hgb Hct MCV MCH MCHC RDW Std Deviation RDW Coeff of Dara Plt Count MPV Immature Gran % (Auto) Neut % (Auto) Lymph % (Auto) [place] % (Auto) Eos % (Auto) Baso % (Auto) Absolute Neuts (auto) Absolute Lymphs (auto) Nucleated RBC % PT INR APTT Sodium Potassium Chloride Carbon Dioxide Anion Gap BUN Creatinine Estim Creat Clear Calc Est GFR (MDRD) Af Amer Est GFR (MDRD) Non-Af BUN/Creatinine Ratio Glucose Hemoglobin A1c 5.0 Calcium Magnesium Total Bilirubin AST ALT Alkaline Phosphatase Troponin I High Sens Total Protein Albumin Globulin Albumin/Globulin Ratio Triglycerides Cholesterol LDL Cholesterol VLDL Cholesterol HDL Cholesterol TSH Free T4 Radiography Diagnostic Testing: Radiology Impression Brain CT 10/03/20 20:45 IMPRESSION: No acute intracranial abnormality. Chronic ischemic changes of the brain. Electronically Signed: Umair Miller MD at 21:09 EDT Tel , Service support , ADDENDUM: 10/03/202116 IMPRESSION: No acute intracranial abnormality. Chronic ischemic changes of the brain. N.B. : The above Results were Read Back by Umair Miller MD to Dr. Davon Russo MD, and understanding confirmed on 10/03/2020 21:10:40 (ET). Electronically Signed: Umair Miller MD at 21:09 EDT Tel , Service support , Head/Neck CTA 10/03/20 20:47 ADDENDUM: 10/03/202143 Chest X-Ray 10/03/20 21:25 IMPRESSION: Possible left upper lobe infiltrate. Ileus. Electronically Signed: Ney Bernard MD at 23:23 EDT , Service support , Echocardiogram 10/04/20 00:29 Interpretation Summary Left ventricular systolic function is normal. The estimated ejection fraction is 60 %. The left atrium is moderately enlarged. The right atrium is mildly enlarged. There is moderate mitral annular calcification. Extension of the mitral annular calcification on the base of the posterior mitral valve leaflet. Mild (1+) mitral valve insufficiency. Moderate (2+) tricuspid valve insufficiency. Mild focal aortic valve calcification. Mild (1+) aortic valve insufficiency. Trivial pulmonic valve insufficiency. Mildly dilated aortic root. Calcified aortic root. Right ventricular systolic pressure estimated to be 45 mmHg. Transmitral diastolic flow velocities suggest diastolic dysfunction (pseudonormal pattern). No doppler evidence for ASD. ICD or pacer leads identified within the right atrium ICD or pacer leads identified within the right ventricle. Ordering Physician: Imelda Chambers Referring Physician: Out of Town Doctor Performed By: James Summers RCS Brain CT 10/04/20 20:00 IMPRESSION: Chronic involutional changes of the brain. Electronically Signed: Ruba Dennis MD at 15:49 EDT Tel , Service support , D/C Instructions Discharge Diet: Low fat / Low cholesterol Call your doctor if you observe: Fever of 101 or Higher, Shortness of breath, Dizziness, Swelling in the ankles, Chest pain and Increased palpitations (irr egular heartbeat) Meaningful Use Info Meaningful Use Diagnoses (Choose all that apply): None applicable Discharge Plan Admission Admit Date/Time: 10/03/20 23:07 Attending Provider: Michael Casiano Instructions Patient Instructions: ED TIA: Transient Ischemic Attack Discharge Orders/Prescriptions Prescriptions: New aspirin 81 mg Tablet,Chewable 81 mg PO BREAKFAST Qty: 30 RF: 0 atorvastatin 40 mg Tablet 40 mg PO QHS Qty: 30 RF: 0 Continued furosemide 40 mg tablet 40 mg PO DAILY RF: 0 venlafaxine 75 mg capsule,extended release 24hr 75 mg PO DAILY RF: 0 gabapentin 600 mg tablet 1,200 mg PO BID RF: 0 alendronate 70 mg tablet 70 mg PO DAILY RF: 0 metoprolol succinate 100 mg tablet extended release 24 hr 100 mg PO DAILY RF: 0 levothyroxine 100 mcg tablet 100 mcg PO DAILY RF: 0 alprazolam 0.5 mg tablet 0.5 mg PO BID PRN PRN (Reason: Anxiety) RF: 0 potassium chloride [Klor-Con M20] 20 mEq tablet,ER particles/crystals 20 meq PO DAILY RF: 0 pantoprazole 40 mg tablet,delayed release (DR/EC) 40 mg PO DAILY RF: 0 buspirone 10 mg tablet 10 mg PO TID RF: 0 promethazine 25 mg tablet 25 mg PO PRN PRN (Reason: Nausea) RF: 0 orphenadrine citrate 100 mg tablet extended release 100 mg PO DAILY RF: 0 hydromorphone 4 mg tablet 4 mg PO TID RF: 0 buprenorphine 20 mcg/hour patch weekly QWEEK RF: 0 Eliquis 5 mg tablet 5 mg PO BID RF: 0 ferrous sulfate 325 mg DAILY RF: 0 Referrals / Follow Up: BELLA CLAIRE [Other] BELLA CLAIRE [Other] Disposition Disposition (needs filled in before D/C Order can be placed): Home, Self Care Charges/Coding Visit Charges OBSV E&M: 46641 Observation care discharge
--- NOTE | 2020-10-04 20:00 | CT_ITS ---
STUDY: CT BRAIN WITHOUT CONTRAST REASON FOR EXAM: Female, 70 years old. CVA, repeat RADIATION DOSAGE (If Supplied By Facility): CTDIvol = ( ) mGy, DLP = ( ) mGycm TECHNIQUE: Transaxial CT imaging of the brain was performed without administration of intravenous contrast material. Individualized dose optimization techniques were used for this CT. COMPARISON: 10/03/2020 CT of the head FINDINGS: There is cerebral atrophy with widening of the extra-axial spaces and ventricular dilatation. There are areas of decreased attenuation within the white matter tracts of the supratentorial brain, consistent with microvascular disease changes. There is no intracranial hemorrhage. There are no findings of an acute ischemic infarction. Normal soft tissue structures. Normal visualized paranasal sinuses. CT/Brain/Head without Contrast IMPRESSION: Chronic involutional changes of the brain. Electronically Signed: Ruba Dennis MD at 15:49 EDT Tel , Service support ,
== END 2020-10-04 16:54 | disposition home or self-care (01) ==
LOC: ED 23:08 → PCU 10-04 00:16
PROVIDERS: Admitting Provider Family Medicine; Emergency Provider Emergency Medicine; Visit Provider Family Medicine
DX: R47.01 Aphasia (principal); I10 Essential (primary) hypertension; I48.0 Paroxysmal atrial fibrillation; E03.9 Hypothyroidism, unspecified; E78.5 Hyperlipidemia, unspecified; K21.9 Gastro-esophageal reflux disease without esophagitis; M79.7 Fibromyalgia; F32.9 Major depressive disorder, single episode, unspecified; F41.9 Anxiety disorder, unspecified; G89.4 Chronic pain syndrome; Z95.0 Presence of cardiac pacemaker; Z79.899 Other long term (current) drug therapy; Z87.891 Personal history of nicotine dependence; Z79.01 Long term (current) use of anticoagulants; Z79.82 Long term (current) use of aspirin; Z86.73 Personal history of transient ischemic attack (TIA), and cerebral infarction without residual deficits; Z88.0 Allergy status to penicillin; Z88.2 Allergy status to sulfonamides
CPT/HCPCS: 36415; 70450; 70496; 70498; 71045; 80048; 80053; 80061; 83036; 83735; 84439; 84443; 84484; 85025; 85610; 85730; 92610; 93005; 93306; 94762; 96360; 96361; 97162; 97165; 97802; 99218; 99285; 99406; J7030; Q9957; Q9967; A4216; G0378; J3490

== ENCOUNTER 2021-01-01 02:18 | Emergency (ER) | payer MEDICARE, OTHER, SELFPAY ==
[2021-01-01 02:19] VITALS: TEMP 36.4; BMI 25.3
[2021-01-01 02:26] VITALS: BP 110/58; PULSE 58; RESP 16; O2SAT 96
[2021-01-01 02:32] VITALS: BMI 25.3
--- NOTE | 2021-01-01 02:46 | EDS_ITS ---
HPI History of Present Illness Chief Complaint: Neuro S/Sx Informant: patient, spouse/S.O. and EMS Narrative Narrative: 70-year-old female presented to the emergency department via EMS following a altered level of consciousness episode. At approximately 2300 hrs. the patient was washing a cat bowl out of the sink. She turned off the water and her noticed that she was staring off. He went over to her and had to help get her over to the table to sit down. The patient states that that is the last thing she remembers until being in the ambulance with the shearing shed worker. notes that she did not fall. There is no loss of bowel or bladder control. No seizure-like activity. She seemed just not be there and was not speaking. Patient was admitted during the summer with an expressive aphasia and had a work-up inpatient evaluation. MRI could not be performed due to pacemaker. She is on Eliquis as well as aspirin. She denies missing any doses. She just saw her primary care physician in [place] on Sunday. She states that earlier in the day she felt her normal self [facility] Medical History (Updated 01/01/21 @ 04:[address] Dustin Hood, ) Anxiety Atrial fibrillation Chronic cough Chronic pain Depression Hypertension Hypothyroidism Osteoporosis TIA (transient ischemic attack) Home Medications Eliquis 5 mg PO BID 10/03/20 [History Last Taken Unknown] alendronate 70 mg PO DAILY 10/03/20 [History Last Taken Unknown] alprazolam 0.5 mg PO BID PRN PRN 10/03/20 [History Last Taken Unknown] buprenorphine 10 mcg TOPICAL QWEEK 10/03/20 [History Last Taken Unknown] buspirone 10 mg PO TID 10/03/20 [History Last Taken Unknown] furosemide 40 mg PO DAILY 10/03/20 [History Last Taken Unknown] gabapentin 1,200 mg PO BID 10/03/20 [History Last Taken Unknown] hydromorphone 4 mg PO TID 10/03/20 [History Last Taken Unknown] levothyroxine 100 mcg PO DAILY 10/03/20 [History Last Taken Unknown] metoprolol succinate 100 mg PO DAILY 10/03/20 [History Last Taken Unknown] orphenadrine citrate 100 mg PO DAILY 10/03/20 [History Last Taken Unknown] pantoprazole 40 mg PO DAILY 10/03/20 [History Last Taken Unknown] potassium chloride [Klor-Con M20] 20 meq PO DAILY 10/03/20 [History Last Taken Unknown] promethazine 25 mg PO PRN PRN 10/03/20 [History Last Taken Unknown] venlafaxine 75 mg PO DAILY 10/03/20 [History Last Taken Unknown] aspirin 81 mg PO BREAKFAST #30 tab 10/04/20 [Rx Last Taken Unknown] atorvastatin 40 mg PO QHS #30 tab 10/04/20 [Rx Last Taken Unknown] ferrous sulfate 325 mg DAILY 10/04/20 [History Last Taken Unknown] cephalexin 500 mg PO Q8H 01/01/21 [History Last Taken Unknown] Allergy/AdvReac Type Severity Reaction Status Date / Time amoxicillin [From Augmentin] Allergy Diarrhea Verified 01/01/21 02:22 clavulanic acid Allergy Diarrhea Verified 01/01/21 02:22 [From Augmentin] Sulfa (Sulfonamide Allergy Swelling Verified 01/01/21 02:22 Antibiotics) Surgical History (Updated 01/01/21 @ 02:[address] Dustin Hood DO) S/P placement of cardiac pacemaker Social History (Updated 01/01/21 @ 02:[address] Dustin Hood DO) Smoking Status: Never smoker substance use type: does not use ROS ROS ED Constitutional Constitutional ED: Denies chills or weight loss Eyes Eyes: Denies change in vision or diplopia ENT ENT ED: Denies ear pain, rhinorrhea or sore throat Cardiovascular Cardiovascular: Denies chest pain, orthopnea, palpitations or racing heartbeat Respiratory/Chest Respiratory/Chest: Denies cough, dyspnea or orthopnea Gastrointestinal Gastrointestinal: Denies abdominal pain, diarrhea, nausea or vomiting Genitourinary Genitourinary ED: Denies dysuria, hematuria or urinary frequency Musculoskeletal Musculoskeletal: Denies arthralgias or myalgias Integumentary Denies abscess or rash Neurologic Neurologic: Reports other Details: See history of present illness ; Denies headache(s) or weakness Psychiatric Psychiatric: Denies anxiety, depression, suicidal ideation or suicidal thoughts Endocrine Endocrinology: Denies polydipsia, polyphagia or polyuria Allergic/Immunologic Allergic/Immunologic ED: Denies mouth swelling, tongue swelling or urticaria EXAM Physical Exam Const Vital Signs: 01/01/21 02:19 01/01/21 02:26 Temperature 97.5 F L Temperature Source Temporal Pulse Rate 58 L Respiratory Rate 16 Blood Pressure 110/58 L Blood Pressure Mean 75 Pulse Ox 96 Positive well nourished and well developed General Appearance ED: well developed HEENT Reports normocephalic, head/scalp atraumatic and moist mucous membranes Eyes PERRL and EOMs intact bilaterally Neck no lymphadenopathy, supple and no JVD Resp normal respiratory effort and clear to auscultation bilaterally Cardio regular rate and regular rhythm Cardio Narrative: Systolic murmur Rate: regular rate Rhythm: regular rhythm GI normal to inspection, nondistended, normoactive bowel sounds and non-tender Palpation: soft Back/Spine no CVA tenderness and normal ROM Extremity normal to inspection General Extremety ED: Negative for edema General Extremity: Negative for edema Neuro oriented x3 and CN's II-XII intact bilaterally Sensorium / Orientation: alert Motor Exam: strength 5/5 throughout Psych mental status grossly normal Mood & Affect: Negative for depressed or tearful Skin no rashes or lesions noted and no wounds STROKE Vital Signs/Narrative: Vital Signs Temp Pulse Resp BP Pulse Ox 01/01/21 02:26 58 L 16 110/58 L 96 01/01/21 02:19 97.5 F L NIHSS Initial: 1a Level of Consciousness: 0 1b LOC Questions (Score 2 if aphasic/stupor): 0 1c LOC Commands (Only score 1st attempt): 0 2 Best Gaze (If aphasic, use reflexive mvmts.): 0 3 Visual: 0 4 Facial Palsy: 0 5 Motor Arm Right (UN = amputation/fusion): 0 5 Motor Arm Left: 0 6 Motor Leg Right: 0 6 Motor Leg Left: 0 7 Limb ataxia (Only + if out of proportion): 0 8 Sensory (Aphasia/stupor=0 or 1, coma=2): 0 9 Best Language: 0 10 Dysarthria (mute, coma=2, intubated=UN): 0 11 Extinction and Inattention (only scored if +): 0 Total Score: 0 MDM MDM MDM Narrative Medical decision making narrative: Basic blood work was normal. Was noted that her blood glucose was 62. She asked for a Coke and repeat glucose of 73. CT the brain was normal. Patient has had no events on the monitor. She is back to her baseline. Patient is on aspirin as well as Eliquis. She had a TIA evaluation just a couple months ago. Patient would like to go home I think this is very reasonable. She will follow up with her primary care physician Lab Data Attestation: I reviewed the patient's lab results. Labs: Laboratory Results - last 24 hr 01/01/21 01/01/21 01/01/21 02:35 02:35 03:45 WBC 5.9 RBC 3.30 L Hgb 11.0 L Hct 35.0 L MCV 106.1 H MCH 33.3 H MCHC 31.4 L RDW Std Deviation 49.1 H RDW Coeff of Dara 12.6 Plt Count 185 MPV 9.5 Immature Gran % (Auto) 0.300 Neut % (Auto) 50.7 Lymph % (Auto) 28.1 [place] % (Auto) 14.0 H Eos % (Auto) 6.0 H Baso % (Auto) 0.9 Absolute Neuts (auto) 3.0 Absolute Lymphs (auto) 1.65 Nucleated RBC % 0 Sodium 140 Potassium 4.6 Chloride 108 H Carbon Dioxide 29.0 Anion Gap 3 L BUN 15 Creatinine 0.87 Estim Creat Clear Calc 50.75 Est GFR (MDRD) Af Amer 82 Est GFR (MDRD) Non-Af 68 BUN/Creatinine Ratio 17.2 Glucose 62 L Calcium 8.2 L POC Glucose 73 Radiography Diagnostic Testing: Radiology Impression Brain CT 01/01/21 03:02 IMPRESSION: No intracranial acute abnormal finding. Electronically Signed: David Tovar MD at 3:58 EDT Tel , Service support , Discharge Plan Triage Chief Complaint: Neuro S/Sx ED Provider: Dustin Hood Dx/Rx/DC Orders Clinical Impression: Acute alteration in mental status Instructions: ED ALOC Prescriptions: No Action furosemide 40 mg tablet 40 mg PO DAILY RF: 0 venlafaxine 75 mg capsule,extended release 24hr 75 mg PO DAILY RF: 0 gabapentin 600 mg tablet 1,200 mg PO BID RF: 0 alendronate 70 mg tablet 70 mg PO DAILY RF: 0 metoprolol succinate 100 mg tablet extended release 24 hr 100 mg PO DAILY RF: 0 levothyroxine 100 mcg tablet 100 mcg PO DAILY RF: 0 alprazolam 0.5 mg tablet 0.5 mg PO BID PRN PRN (Reason: Anxiety) RF: 0 potassium chloride [Klor-Con M20] 20 mEq tablet,ER particles/crystals 20 meq PO DAILY RF: 0 pantoprazole 40 mg tablet,delayed release (DR/EC) 40 mg PO DAILY RF: 0 buspirone 10 mg tablet 10 mg PO TID RF: 0 promethazine 25 mg tablet 25 mg PO PRN PRN (Reason: Nausea) RF: 0 orphenadrine citrate 100 mg tablet extended release 100 mg PO DAILY RF: 0 hydromorphone 4 mg tablet 4 mg PO TID RF: 0 buprenorphine 20 mcg/hour patch weekly 10 mcg topical QWEEK RF: 0 Eliquis 5 mg tablet 5 mg PO BID RF: 0 ferrous sulfate 325 mg DAILY RF: 0 aspirin 81 mg Tablet,Chewable 81 mg PO BREAKFAST Qty: 30 RF: 0 atorvastatin 40 mg Tablet 40 mg PO QHS Qty: 30 RF: 0 cephalexin 500 mg capsule 500 mg PO Q8H RF: 0 Referrals: BELLA CLAIRE [Other] Activity Restrictions/Additional Instructions: Please arrange follow-up with your primary care physician. Disposition Disposition: Home, Self Care
[2021-01-01 02:54] LABS: Absolute Lymphocyte Count 1.65 X10^3/uL (0.83-4.51); Basophil# 0.05 X10^3/uL; Basophil% 0.9 % (0-1); Eosinophil# 0.35 X10^3/uL; Lymphocyte # 1.65 X10^3/ul (0.83-4.51); Lymphocyte % 28.1 % (19-41); Mean Corp Hgb Conc 31.4 g/dL (32-36); Mean Corpuscular Hgb 33.3 pg (27.0-32.0); Mean Corpuscular Volume 106.1 fL (81-99); Mean Platelet Vol. 9.5 fl (6.2-12.0); Monocyte# 0.82 X10^3/uL; NRBC Flagged by Analyzer 0 % (0-5); Neutrophil # 2.98 X10^3/uL (2.7-7.7); Neutrophil % 50.7 % (47-70); Platelet Count 185 K/mm3 (150-450); RBC Distribution Width CV 12.6 % (11.6-14.6); RBC Distribution Width SD 49.1 fl (35.1-43.9); White Blood Count 5.9 K/mm3 (4.4-11.0)
--- NOTE | 2021-01-01 03:02 | CT_ITS ---
STUDY: CT BRAIN WITHOUT CONTRAST REASON FOR EXAM: Female, 70 years old. Altered loc RADIATION DOSAGE (If Supplied By Facility): CTDIvol = ( 44.99 ) mGy, DLP = ( 880.47 ) mGycm TECHNIQUE: Transaxial CT imaging of the brain was performed without administration of intravenous contrast material. Individualized dose optimization techniques were used for this CT. COMPARISON: No relevant priors. FINDINGS: Normal soft tissue structures. Normal calvarium. There is mild cerebral volume loss with widening of the extra-axial spaces and ventricular dilatation. There are areas of decreased attenuation within the white matter tracts of the supratentorial brain, consistent with microvascular disease changes. Normal basal ganglia and thalami. Normal brainstem. Normal cerebellum. There is no intracranial hemorrhage. There are no findings of an acute ischemic infarction. Normal visualized paranasal sinuses. Bilateral ocular lens replacements. CT/Brain/Head without Contrast IMPRESSION: No intracranial acute abnormal finding. Electronically Signed: David Tovar MD at 3:58 EDT Tel , Service support ,
[2021-01-01 03:05] LABS: Anion Gap 3 (5-15); BUN 15 mg/dL (7-18); BUN/Creat Ratio 17.2 RATIO (10-20); Calcium,Total 8.2 mg/dL (8.5-10.1); Chloride 108 mmol/L (98-107); Creatinine, Serum 0.87 mg/dL (0.55-1.02); EST Glomerular Filtration Rate 68 mL/min (>60); Est Glom Filt Rate - Afr Amer 82 mL/min (>60); Estimated Creatinine Clearance 50.75 ml/min; Glucose 62 mg/dL (74-106); Potassium 4.6 mmol/L (3.5-5.1); Sodium Level 140 mmol/L (136-145)
[2021-01-01 03:51] LABS: Bedside Glucose 73 mg/dL (70-110)
[2021-01-01 04:26] VITALS: BP 112/57; PULSE 63; RESP 17; O2SAT 96
== END 2021-01-01 04:27 | disposition home or self-care (01) ==
PROVIDERS: Emergency Provider Emergency Medicine
DX: R41.82 Altered mental status, unspecified (principal); E03.9 Hypothyroidism, unspecified; I10 Essential (primary) hypertension; I48.91 Unspecified atrial fibrillation; F41.9 Anxiety disorder, unspecified; Z95.0 Presence of cardiac pacemaker; Z79.01 Long term (current) use of anticoagulants; Z79.82 Long term (current) use of aspirin; Z79.899 Other long term (current) drug therapy
CPT/HCPCS: 70450; 80048; 82962; 85025; 99285; A4216